=== PATIENT | female | born 1980 | race Caucasian/White ===

== ENCOUNTER 2018-04-14 02:33 | Inpatient (IN) | payer BC ==
[2018-04-14] MEDS ORDERED: Sodium Chloride 0.9% 10 ML Syringe FLUSH PRN (05:42)
[2018-04-14] MEDS ORDERED: Lactated Ringers 500 ML IV ONE (05:42)
[2018-04-14] MEDS ORDERED: Methylergonovine 0.2 MG/1 ML Amp IM PRN (05:42)
[2018-04-14] MEDS ORDERED: Ondansetron 4 MG/2 ML SDV IV PRN (05:42)
[2018-04-14] MEDS ORDERED: fentaNYL 100 MCG/2 ML SDV IVPUSH PRN (05:42)
[2018-04-14] MEDS ORDERED: Lidocaine 1% 30 ML SDV INJECT PRN (05:42)
[2018-04-14] MEDS ORDERED: Misoprostol 400 MCG (4 X 100 MCG TAB) RECTAL PRN ×2 (05:42→17:38)
[2018-04-14] MEDS ORDERED: Carboprost Tromethamine 250 MCG/1 ML Amp IM PRN ×2 (05:42→17:38)
[2018-04-14] MEDS ORDERED: Tranexamic Acid 1,000 MG in Sodium Chloride 0.9% 100 ML IV PRN ×2 (05:42→17:38)
[2018-04-14] MEDS ORDERED: Acetaminophen 325 MG Tab PO PRN (05:42)
[2018-04-14] MEDS ORDERED: Oxytocin/Normal Saline 30 UNIT/500 ML BAG IV SCH ×2 (05:45)
[2018-04-14] MEDS ORDERED: Misoprostol 50 MCG (1/2 of 100 MCG) Tab VAG ONE (05:46)
[2018-04-14] MEDS: Lactated Ringers 1,000 ML IV SCH ×2 (09:55→14:04)
[2018-04-14] MEDS ORDERED: Nalbuphine 10 MG/1 ML Vial IM PRN (10:30)
--- NOTE | 2018-04-14 11:21 | PN ---
DATE: 04/14/2018 SUBJECTIVE: The patient is here, doing well. Admits that she is quite nervous and anxious about the induction process as she not really had that done before, and this time being a baby girl, there is just something that is making her more nervous. They have tried 2 needle pokes for IV draws for lab which were unsuccessful and caused the patient to have a vasovagal-type reaction, which she is now responding from. OBJECTIVE: General: Diaphoresis noted. Cardiac: Heart rate with slight tachycardia. Lungs: Clear. Vaginal: Cervix is 3 cm dilated, 80% effaced, -2 station, soft, in mid position. Garay score of 9. Extremities: No edema, erythema, or tenderness noted. ASSESSMENT: Diagnoses unchanged from previously written H and P. Add vasovagal reaction. PLAN: Anticipate initiation of Pitocin once an IV is started, and I will come back over from the clinic as soon as I am able to perform artificial rupture of membranes and anticipate that her labor will progress fairly rapidly as it has in the past. The patient has had her questions answered and is comfortable with proceeding with that plan. [facility] /[id number]
[2018-04-14] MEDS ORDERED: Nalbuphine 10 MG/1 ML Vial IM ONE (11:44)
[2018-04-14] MEDS ORDERED: Measles, Mumps & Rubella Vaccine 0.5 ML SDV SUBCUT ONE (17:38)
[2018-04-14] MEDS ORDERED: Simethicone 80 MG Tab.Chew PO PRN (17:38)
[2018-04-14] MEDS ORDERED: Benzocaine/Menthol 20%-0.5% Spray 56 GM Canister TOP PRN (17:38)
[2018-04-14] MEDS: Ibuprofen 800 MG Tab PO PRN (18:18)
[2018-04-14] MEDS: Docusate Sodium 100 MG Cap PO PRN (21:27)
[2018-04-15] MEDS: Ibuprofen 800 MG Tab PO PRN (05:21)
[2018-04-15] MEDS ORDERED: Prenatal Multivitamin with Calcium/Folic Acid/Iron Tab PO SCH (09:00)
[2018-04-15] MEDS: Docusate Sodium 100 MG Cap PO PRN (09:40)
--- NOTE | 2018-04-15 09:46 | DEL ---
DATE: 04/14/2018 PREPROCEDURE DIAGNOSES: 1. A 39 and 0/7 weeks' intrauterine . 2. 8, para 4-0-2-4. 3. High-risk . 4. History of macrosomic . 5. Heartburn. 6. Blood type O negative. Rubella nonimmune. Group B streptococcus negative. POSTPROCEDURE DIAGNOSES: 1. A 39 and 0/7 weeks' intrauterine . 2. 8, para 5-0-2-5. 3. High-risk . 4. History of macrosomic infant. 5. Heartburn. 6. Blood type O negative. Rubella nonimmune. Group B streptococcus negative. 7. Delivery of viable female infant. scores of 7 and 9. Weight 3255 g, 7 pounds 3 ounces. BRIEF HISTORY: A 38-year-old female with the above-listed diagnoses presented to the hospital for induction of labor because of her known risk factors. See admission history and physical and progress notes for details. Once Pitocin was initiated and we were able to get artificial rupture of membranes, she rapidly progressed to a precipitous vaginal delivery without complications. Details as outlined below. PROCEDURE IN DETAIL: With the patient in dorsal lithotomy position, and after pushing for only 1.5 minutes, delivered a viable female infant in the OA position over intact perineum. Baby was dried and stimulated. Mouth and nose bulb suctioned, and baby was placed on the mother's abdomen. Delayed cord clamping performed and 3-vessel verified. Cord blood samples were obtained. Placenta delivered by gentle cord traction and concomitant uterine massage. Labia and vagina were inspected, and there was some superficial tear that was hemostatic and did not require any sutures. The patient had tolerated the procedure well without any neuraxial anesthesia, and there were no complications. ESTIMATED BLOOD LOSS: 250 mL. FINDINGS: Viable female . Weight and Apgars as noted above. COMPLICATIONS: None. DISPOSITION: Mother and baby to stay in the room at this time to initiate . [facility] /[id number] MTDTata
--- NOTE | 2018-04-15 13:31 | DISCH ---
LOCATION: [facility] HISTORY: This patient is a 38-year-old multigravida who Dr. Wilson has thoroughly discussed with me. I have been asked to round on her today and to discharge her. Please see Dr. Wilson's admission history and physical as well as delivery note. Essentially, her course has been quite uncomplicated. The patient was Rh negative, but unsensitized. She did have a past history of macrosomia, having had a 9-pound 4-ounce baby vaginally previously. She also was noted to be nonimmune to measles, mumps, and rubella. She does have advanced maternal age and is a multigravida whose age is 38. Her course has otherwise been quite unremarkable as mentioned above. The patient was rounded on today, on 04/15/2018. She denies any complaints whatsoever. She is and states that, that is well established. Her lochia flow is within normal limits. She is tolerating her diet. Her vital signs are all within normal limits and her discharge hemoglobin is 11.0 today. Her extremities also are negative. Yesterday, she did have a spontaneous vaginal delivery of a baby girl, named Monique and the weight was 7 pounds 3 ounces and the scores were 7 and 9. Her baby girl is doing well today also and does have 1 more blood test pending this afternoon. The routine discharge instructions are given to Mrs. Harden. She will call us at once if any questions or problems whatsoever or if any fever, excess bleeding, excess pain, or pain in her legs, pelvic area, breasts, etc. Healthy, well-balanced nutritional measures were discussed with her as the patient is . DISCHARGE MEDICATIONS: Consist of: 1. Tylenol or ibuprofen p.r.n. 2. She will also use Colace p.r.n. 3. She will continue her vitamins. OTHER DISCHARGE INSTRUCTIONS: She was encouraged to do gradual progressive ambulation at home. FOLLOWUP APPOINTMENTS: Consist of an appointment this coming Tuesday for baby girl Monique with Dr. Wilson, and also Funmi will make a [address] Wilson as well. OPERATIONS AND PROCEDURES: Spontaneous vaginal delivery of baby girl, weighing 7 pounds 3 ounces, and having scores of 7 and 9 on 04/14/2018. There were no lacerations. No other intrapartum or complications. FINAL DIAGNOSES: 1. at 39 weeks' gestation. 2. Induction of labor. 3. Advanced maternal age. 4. Past history of macrosomia. 5. Nonimmune to measles, mumps, and rubella. Vaccination has been given again with this hospitalization. Discharge hemoglobin is 11.0. [facility] /[id number]
== END 2018-04-15 15:30 | disposition home or self-care (01) | DRG 560 ==
LOC: EDSTATUS 02:33 → DL.OB 08:43 → UNDOADMOB 08:43 → INTOOBSV 14:49 → OBSVTOIN 14:49 → DL.OB 17:38 → OBSVTOIN 17:38
PROVIDERS: ADMIT Family Medicine; ATTEND Family Medicine
PROC: 10E0XZZ Delivery of Products of Conception, External Approach (ICD-10-PCS; principal; 2018-04-14)
PROC: 6A550ZT Pheresis of Cord Blood Stem Cells, Single (ICD-10-PCS; 2018-04-14)
PROC: 3E033VJ Introduction of Other Hormone into Peripheral Vein, Percutaneous Approach (ICD-10-PCS; 2018-04-14)
PROC: 10907ZC Drainage of Amniotic Fluid, Therapeutic from Products of Conception, Via Natural or Artificial Opening (ICD-10-PCS; 2018-04-14)
PROC: 3E0234Z Introduction of Serum, Toxoid and Vaccine into Muscle, Percutaneous Approach (ICD-10-PCS; 2018-04-14)
DX: O80 Encounter for full-term uncomplicated delivery (principal); Z3A.39 39 weeks gestation of pregnancy; Z37.0 Single live birth; Z23 Encounter for immunization
CPT/HCPCS: 36415; 59025; 59409; 85027; 90707; A9270-GY; J2590; J3010; J7120